=== PATIENT | female | born 1975 | race American Indian/Alaskan Native ===

== ENCOUNTER 2016-07-22 21:32 | Emergency (ER) | payer MEDICAID ==
[2016-07-22] MEDS ORDERED: ACTIDOSE-AQUA PO ONE (22:11)
[2016-07-22] MEDS ORDERED: ACTIDOSE SORBITOL PO ONE (22:13)
[2016-07-22 22:51] LABS: Basophils % (Auto) 0.8 % (0.0-1.8); Eosinophils % (Auto) 0.3 % (0.0-4.3); Hematocrit 37.7 % (30.3-42.9); Hemoglobin 12.3 gm/dl (10.1-14.3); Mean Corpuscular HGB Conc 33 % (30-34); Mean Corpuscular Hemoglobin 28 pg (28-32); Mean Corpuscular Volume 85 fl (79-97); Platelet Count 262 K/mm3 (140-440); Red Blood Count 4.42 M/mm3 (3.65-5.03); Red Cell Distribution Width 15.3 % (13.2-15.2); White Blood Count 6.8 K/mm3 (4.5-11.0)
[2016-07-22 22:59] LABS: Urine Drugs of Abuse Note Disclamer
[2016-07-22 23:09] LABS: Bilirubin,Urine NEG (Negative); Blood,Urine MOD (Negative); Ketones,Urine TR mg/dL (Negative); Leukocyte Esterase,Urine NEG (Negative); Mucus,Urine FEW /HPF; Nitrite,Urine NEG (Negative); Protein,Urine <15 mg/dL mg/dL (Negative); Urobilinogen,Urine < 2.0 mg/dL (<2.0); WBC,Urine < 1.0 /HPF (0.0-6.0)
[2016-07-22 23:12] LABS: Alanine Aminotransferase 9 units/L (7-56); Albumin/Globulin Ratio 1.3 %; Alkaline Phosphatase 67 units/L (35-129); Anion Gap 17 mmol/L; Bilirubin,Total 0.8 mg/dL (0.1-1.2); Blood Urea Nitrogen 6 mg/dL (7-17); Calcium 8.8 mg/dL (8.4-10.2); Carbon Dioxide 23 mmol/L (22-30); Chloride 103.4 mmol/L (98-107); Creatine Kinase 170 units/L (30-135); Glucose 71 mg/dL (65-100); Potassium 3.3 mmol/L (3.6-5.0); Sodium 140 mmol/L (137-145); Total Protein 7.1 g/dL (6.3-8.2)
[2016-07-22] MEDS ORDERED: K-DUR PO ONE (23:21)
[2016-07-22 23:59] LABS: Creatine Kinase MB 3.1 ng/mL (0.0-4.0)
--- NOTE | 2016-07-23 05:59 | Emergency Department Report ---
History of Present Illness - General Chief Complaint: Overdose Stated Complaint: POSS OD/SUICIDAL Time Seen by Provider: 07/22/16 22:03 Source: EMS Mode of arrival: Stretcher Limitations: No Limitations - History of Present Illness Initial Comments: 40-year-old female with a past medical history of asthma, schizophrenia, depression, PTSD, seizures, neuropathy presents to the hospital with complaints of attempted overdose. Patient apparently took approximately 15 gabapentin 300 mg, 20 trazodone 100 mg, Risperdal unknown amount and unknown doses. Patient states she acutely just his medications at approximately 8:15. Patient herself notified EMS. Patient is drowsy upon arrival but does speak intermittently and follow commands. - Related Data Allergies Allergy/AdvReac Type Severity Reaction Status Date / Time thioridazine HCl Allergy Swelling Verified 07/22/16 22:05 [From [facility]] ED Review of Systems ROS: Stated complaint: POSS OD/SUICIDAL Other details as noted in HPI ED Past Medical Hx - Past Medical History Previous Medical History?: Yes Hx Hypertension: No Hx CVA: No Hx Heart Attack/AMI: No Hx Congestive Heart Failure: No Hx Diabetes: No Hx Deep Vein Thrombosis: No Hx Pulmonary Embolism: No Hx GERD: No Hx Liver Disease: No Hx Renal Disease: No Hx of Cancer: No Hx Sickle Cell Disease: No Hx Arthritis: Yes Hx Headaches / Migraines: No Hx Seizures: Yes Hx Kidney Stones: No Hx Psychiatric Treatment: Yes (schizo, depression, ptsd) Hx Asthma: Yes Hx COPD: No Hx Tuberculosis: No Hx Dementia: No Hx HIV: No Additional medical history: neuropathy - Surgical History Past Surgical History?: Yes Hx Coronary Stent: No Hx Open Heart Surgery: No Hx Pacemaker: No Hx Internal Defibrillator: No Hx Cholecystectomy: No Hx Appendectomy: No Hx Breast Surgery: No Additional Surgical History: Left arm surgery - Social History Smoking Status: Current Every Day Smoker Substance Use Type: Alcohol, Prescribed ED Physical Exam - General Limitations: No Limitations ED Course Vital Signs 07/22/16 07/22/16 07/23/16 21:44 23:30 00:49 Temperature 97.8 F Pulse Rate 53 L 65 Respiratory 22 18 18 Rate Blood Pressure 127/67 89/39 Blood Pressure 127/67 [Left] O2 Sat by Pulse 100 98 92 Oximetry 07/23/16 07/23/16 07/23/16 00:50 00:52 00:54 Temperature Pulse Rate 62 64 65 Respiratory 18 18 19 Rate Blood Pressure 89/39 89/39 89/39 Blood Pressure [Left] O2 Sat by Pulse 93 93 93 Oximetry 07/23/16 07/23/16 07/23/16 00:56 00:58 01:00 Temperature Pulse Rate 64 65 67 Respiratory 19 19 19 Rate Blood Pressure 89/39 89/39 88/39 Blood Pressure [Left] O2 Sat by Pulse 93 92 91 Oximetry 07/23/16 07/23/16 07/23/16 01:02 01:04 01:06 Temperature Pulse Rate 67 68 68 Respiratory 18 18 18 Rate Blood Pressure 88/39 88/39 88/39 Blood Pressure [Left] O2 Sat by Pulse 92 92 92 Oximetry 07/23/16 07/23/16 07/23/16 01:08 01:10 01:12 Temperature Pulse Rate 69 69 69 Respiratory 18 19 18 Rate Blood Pressure 88/39 88/39 88/39 Blood Pressure [Left] O2 Sat by Pulse 92 92 92 Oximetry 07/23/16 07/23/16 07/23/16 01:14 01:16 01:18 Temperature Pulse Rate 68 70 72 Respiratory 18 19 22 Rate Blood Pressure 88/39 88/39 88/39 Blood Pressure [Left] O2 Sat by Pulse 92 92 93 Oximetry 07/23/16 07/23/16 07/23/16 01:20 01:22 01:24 Temperature Pulse Rate 73 75 75 Respiratory 20 24 21 Rate Blood Pressure 88/39 88/39 88/39 Blood Pressure [Left] O2 Sat by Pulse 93 92 93 Oximetry 07/23/16 07/23/16 07/23/16 01:26 01:27 01:28 Temperature Pulse Rate 75 73 77 Respiratory 22 21 21 Rate Blood Pressure 88/39 88/39 88/39 Blood Pressure [Left] O2 Sat by Pulse 92 92 92 Oximetry 07/23/16 07/23/16 07/23/16 01:30 01:32 01:34 Temperature Pulse Rate 72 76 75 Respiratory 21 20 22 Rate Blood Pressure 105/59 105/59 105/59 Blood Pressure [Left] O2 Sat by Pulse 92 93 93 Oximetry 07/23/16 07/23/16 07/23/16 01:36 01:38 01:40 Temperature Pulse Rate 82 75 77 Respiratory 23 22 22 Rate Blood Pressure 105/59 105/59 105/59 Blood Pressure [Left] O2 Sat by Pulse 92 92 92 Oximetry 07/23/16 07/23/16 07/23/16 01:42 01:44 01:46 Temperature Pulse Rate 75 80 71 Respiratory 20 23 19 Rate Blood Pressure 105/59 105/59 105/59 Blood Pressure [Left] O2 Sat by Pulse 93 89 94 Oximetry 07/23/16 07/23/16 07/23/16 01:48 01:50 01:52 Temperature Pulse Rate 72 78 76 Respiratory 19 25 H 25 H Rate Blood Pressure 105/59 105/59 105/59 Blood Pressure [Left] O2 Sat by Pulse 93 92 92 Oximetry 07/23/16 07/23/16 07/23/16 01:54 01:56 01:58 Temperature Pulse Rate 76 75 71 Respiratory 22 18 20 Rate Blood Pressure 105/59 105/59 105/59 Blood Pressure [Left] O2 Sat by Pulse 91 93 93 Oximetry 07/23/16 07/23/16 07/23/16 02:00 02:02 02:04 Temperature Pulse Rate 64 61 61 Respiratory 18 17 17 Rate Blood Pressure 88/40 88/40 88/40 Blood Pressure [Left] O2 Sat by Pulse 92 93 95 Oximetry 07/23/16 07/23/16 07/23/16 02:06 02:08 02:10 Temperature Pulse Rate 65 68 66 Respiratory 17 17 17 Rate Blood Pressure 88/40 88/40 88/40 Blood Pressure [Left] O2 Sat by Pulse 93 94 94 Oximetry 07/23/16 07/23/16 07/23/16 02:12 02:14 02:16 Temperature Pulse Rate 63 67 71 Respiratory 16 17 18 Rate Blood Pressure 88/40 88/40 88/40 Blood Pressure [Left] O2 Sat by Pulse 95 94 95 Oximetry 07/23/16 07/23/16 07/23/16 02:18 02:19 02:20 Temperature Pulse Rate 67 62 65 Respiratory 16 16 17 Rate Blood Pressure 88/40 89/43 111/66 Blood Pressure [Left] O2 Sat by Pulse 96 94 97 Oximetry 07/23/16 02:21 Temperature Pulse Rate 66 Respiratory 17 Rate Blood Pressure 105/65 Blood Pressure [Left] O2 Sat by Pulse 94 Oximetry - Consultations Consultation #1: 07/22/16 05:53 RN contacted poison control upon arrival and charcoal and supportive care recommended. Recommended observation for respiratory depression, hypotension, seizures, QTC prolongation. They state that Risperdal is the longest after medication and she requires 9 hour of observation minimum for medical clearance. ED Medical Decision Making - Lab Data Result diagrams: 07/22/16 22:00 07/22/16 22:00 Lab Results 07/22/16 07/22/16 07/22/16 Range/Units 22:00 22:00 22:00 WBC 6.8 (4.5-11.0) K/mm3 RBC 4.42 (3.65-5.03) M/mm3 Hgb 12.3 (10.1-14.3) gm/dl Hct 37.7 (30.3-42.9) % MCV 85 (79-97) fl MCH 28 (28-32) pg MCHC 33 (30-34) % RDW 15.3 H (13.2-15.2) % Plt Count 262 (140-440) K/mm3 Lymph % (Auto) 34.4 (13.4-35.0) % [place] % (Auto) 7.4 H (0.0-7.3) % Eos % (Auto) 0.3 (0.0-4.3) % Baso % (Auto) 0.8 (0.0-1.8) % Lymph # 2.3 (1.2-5.4) K/mm3 [place] # 0.5 (0.0-0.8) K/mm3 Eos # 0.0 (0.0-0.4) K/mm3 Baso # 0.1 (0.0-0.1) K/mm3 Seg Neutrophils % 57.1 (40.0-70.0) % Seg Neutrophils # 3.9 (1.8-7.7) K/mm3 Sodium 140 (137-145) mmol/L Potassium 3.3 L (3.6-5.0) mmol/L Chloride 103.4 (98-107) mmol/L Carbon Dioxide 23 (22-30) mmol/L Anion Gap 17 mmol/L BUN 6 L (7-17) mg/dL Creatinine 0.6 L (0.7-1.2) mg/dL Estimated GFR > 60 ml/min BUN/Creatinine Ratio 10.00 % Glucose 71 (65-100) mg/dL Calcium 8.8 (8.4-10.2) mg/dL Magnesium (1.7-2.3) mg/dL Total Bilirubin 0.8 (0.1-1.2) mg/dL AST 15 (5-40) units/L ALT 9 (7-56) units/L Alkaline Phosphatase 67 (35-129) units/L Total Creatine Kinase 170 H (30-135) units/L CK-MB (CK-2) 3.1 (0.0-4.0) ng/mL CK-MB (CK-2) Rel Index 1.8 (0-4) Total Protein 7.1 (6.3-8.2) g/dL Albumin 4.0 (3.9-5) g/dL Albumin/Globulin Ratio 1.3 % HCG, Quant < 2 (0-4) mIU/mL Urine Color (Yellow) Urine Turbidity (Clear) Urine pH (5.0-7.0) Ur Specific [place] (1.003-1.030) Urine Protein (Negative) mg/dL Urine Glucose (UA) (Negative) mg/dL Urine Ketones (Negative) mg/dL Urine Blood (Negative) Urine Nitrite (Negative) Urine Bilirubin (Negative) Urine Urobilinogen (<2.0) mg/dL Ur Leukocyte Esterase (Negative) Urine WBC (Auto) (0.0-6.0) /HPF Urine RBC (Auto) (0.0-6.0) /HPF U Epithel Cells (Auto) (0-13.0) /HPF Urine Mucus /HPF Salicylates (2.8-20.0) mg/dL Urine Opiates Screen Urine Methadone Screen Acetaminophen (10.0-30.0) ug/mL Ur Barbiturates Screen Ur Phencyclidine Scrn Ur Amphetamines Screen U Benzodiazepines Scrn Urine Cocaine Screen U Marijuana (THC) Screen Drugs of Abuse Note Plasma/Serum Alcohol (0-0.07) gm% 07/22/16 07/22/16 07/22/16 Range/Units 22:00 22:00 22:00 WBC (4.5-11.0) K/mm3 RBC (3.65-5.03) M/mm3 Hgb (10.1-14.3) gm/dl Hct (30.3-42.9) % MCV (79-97) fl MCH (28-32) pg MCHC (30-34) % RDW (13.2-15.2) % Plt Count (140-440) K/mm3 Lymph % (Auto) (13.4-35.0) % [place] % (Auto) (0.0-7.3) % Eos % (Auto) (0.0-4.3) % Baso % (Auto) (0.0-1.8) % Lymph # (1.2-5.4) K/mm3 [place] # (0.0-0.8) K/mm3 Eos # (0.0-0.4) K/mm3 Baso # (0.0-0.1) K/mm3 Seg Neutrophils % (40.0-70.0) % Seg Neutrophils # (1.8-7.7) K/mm3 Sodium (137-145) mmol/L Potassium (3.6-5.0) mmol/L Chloride (98-107) mmol/L Carbon Dioxide (22-30) mmol/L Anion Gap mmol/L BUN (7-17) mg/dL Creatinine (0.7-1.2) mg/dL Estimated GFR ml/min BUN/Creatinine Ratio % Glucose (65-100) mg/dL Calcium (8.4-10.2) mg/dL Magnesium (1.7-2.3) mg/dL Total Bilirubin (0.1-1.2) mg/dL AST (5-40) units/L ALT (7-56) units/L Alkaline Phosphatase (35-129) units/L Total Creatine Kinase (30-135) units/L CK-MB (CK-2) (0.0-4.0) ng/mL CK-MB (CK-2) Rel Index (0-4) Total Protein (6.3-8.2) g/dL Albumin (3.9-5) g/dL Albumin/Globulin Ratio % HCG, Quant (0-4) mIU/mL Urine Color (Yellow) Urine Turbidity (Clear) Urine pH (5.0-7.0) Ur Specific [place] (1.003-1.030) Urine Protein (Negative) mg/dL Urine Glucose (UA) (Negative) mg/dL Urine Ketones (Negative) mg/dL Urine Blood (Negative) Urine Nitrite (Negative) Urine Bilirubin (Negative) Urine Urobilinogen (<2.0) mg/dL Ur Leukocyte Esterase (Negative) Urine WBC (Auto) (0.0-6.0) /HPF Urine RBC (Auto) (0.0-6.0) /HPF U Epithel Cells (Auto) (0-13.0) /HPF Urine Mucus /HPF Salicylates < 0.3 L (2.8-20.0) mg/dL Urine Opiates Screen Urine Methadone Screen Acetaminophen < 15.0 (10.0-30.0) ug/mL Ur Barbiturates Screen Ur Phencyclidine Scrn Ur Amphetamines Screen U Benzodiazepines Scrn Urine Cocaine Screen U Marijuana (THC) Screen Drugs of Abuse Note Plasma/Serum Alcohol < 0.01 (0-0.07) gm% 07/22/16 07/22/16 07/22/16 Range/Units 22:00 22:08 22:08 WBC (4.5-11.0) K/mm3 RBC (3.65-5.03) M/mm3 Hgb (10.1-14.3) gm/dl Hct (30.3-42.9) % MCV (79-97) fl MCH (28-32) pg MCHC (30-34) % RDW (13.2-15.2) % Plt Count (140-440) K/mm3 Lymph % (Auto) (13.4-35.0) % [place] % (Auto) (0.0-7.3) % Eos % (Auto) (0.0-4.3) % Baso % (Auto) (0.0-1.8) % Lymph # (1.2-5.4) K/mm3 [place] # (0.0-0.8) K/mm3 Eos # (0.0-0.4) K/mm3 Baso # (0.0-0.1) K/mm3 Seg Neutrophils % (40.0-70.0) % Seg Neutrophils # (1.8-7.7) K/mm3 Sodium (137-145) mmol/L Potassium (3.6-5.0) mmol/L Chloride (98-107) mmol/L Carbon Dioxide (22-30) mmol/L Anion Gap mmol/L BUN (7-17) mg/dL Creatinine (0.7-1.2) mg/dL Estimated GFR ml/min BUN/Creatinine Ratio % Glucose (65-100) mg/dL Calcium (8.4-10.2) mg/dL Magnesium 2.0 (1.7-2.3) mg/dL Total Bilirubin (0.1-1.2) mg/dL AST (5-40) units/L ALT (7-56) units/L Alkaline Phosphatase (35-129) units/L Total Creatine Kinase (30-135) units/L CK-MB (CK-2) (0.0-4.0) ng/mL CK-MB (CK-2) Rel Index (0-4) Total Protein (6.3-8.2) g/dL Albumin (3.9-5) g/dL Albumin/Globulin Ratio % HCG, Quant (0-4) mIU/mL Urine Color Yellow (Yellow) Urine Turbidity Clear (Clear) Urine pH 6.0 (5.0-7.0) Ur Specific [place] 1.019 (1.003-1.030) Urine Protein <15 mg/dl (Negative) mg/dL Urine Glucose (UA) Neg (Negative) mg/dL Urine Ketones Tr (Negative) mg/dL Urine Blood Mod (Negative) Urine Nitrite Neg (Negative) Urine Bilirubin Neg (Negative) Urine Urobilinogen < 2.0 (<2.0) mg/dL Ur Leukocyte Esterase Neg (Negative) Urine WBC (Auto) < 1.0 (0.0-6.0) /HPF Urine RBC (Auto) 1.0 (0.0-6.0) /HPF U Epithel Cells (Auto) < 1.0 (0-13.0) /HPF Urine Mucus Few /HPF Salicylates (2.8-20.0) mg/dL Urine Opiates Screen Presumptive negative Urine Methadone Screen Presumptive negative Acetaminophen (10.0-30.0) ug/mL Ur Barbiturates Screen Presumptive negative Ur Phencyclidine Scrn Presumptive negative Ur Amphetamines Screen Presumptive negative U Benzodiazepines Scrn Presumptive negative Urine Cocaine Screen Presumptive positive U Marijuana (THC) Screen Presumptive negative Drugs of Abuse Note Disclamer Plasma/Serum Alcohol (0-0.07) gm% - EKG Data -: EKG Interpreted by Me (sinus rate 47, qtc 467) - Medical Decision Making Patient has been observed for a place was in the ED and is stable. Nurse's importance several vital signs automatically showing hypotension however patient was lying on the blood pressure cuff at that time. Once blood pressure cuff is appropriately adjusted repeat blood pressure shows systolic over 100 were patient has remained during ED stay. No signs of seizures, respiratory depression, or hypotensive in the ED. Patient is medically clear for psychiatric transfer and admission. Pt received PO potassium - Differential Diagnosis depression, psychosis, suicidal Critical Care Time: No Critical care attestation.: If time is entered above; I have spent that time in minutes in the direct care of this critically ill patient, excluding procedure time. ED Disposition Clinical Impression: Suicide by drug overdose, Cocaine abuse, Medical clearance for psychiatric admission, Hypokalemia Disposition: DC/TX PSY HOSP/PSY UNIT Is pt being admited?: No Does the pt Need Aspirin: No Condition: Stable Time of Disposition: 06:06
--- NOTE | 2016-07-23 16:54 | Consultation ---
History of Present Illness - Reason for Consult Consult date: 07/23/16 Reason for consult: overdose - History of Present Psychiatric Illness CHIEF COMPLAINT IN PATIENTS WORDS: "I tried to kill myself" HISTORY OF PRESENT ILLNESS REQUIRING ADMISSION TO INPATIENT LEVEL OF CARE: (Describe the onset of Illness, Intensity of Symptoms, and Circumstances Leading to Admission) This is a 40-year-old domiciled -[place] female who now presents via EMS to the ER after a suicide attempt via overdose on gabapentin, trazodone and risperidone. Patient was evaluated by the ER physician who examined the patient and ordered appropriate labs prior to medically clearing the patient. Currently the patient's vitals are stable and not suggestive of a serotonin syndrome. On my examination, the patient notes that she has been nonadherent to her medication regimen for the past 6-9 months. Her symptoms have been worsening during that time period. Recently the patient's mother in April and she became more socially withdrawn and isolated from family as well as other supportive structures. Patient currently is presenting as having suicidal thoughts, but withdrawn depressed mood, ruminative thinking, periodic auditory hallucinations and other cognitive effects of ongoing depression. PSYCHIATRIC REVIEW OF SYSTEMS: Depression: Depressed mood, suicidal thoughts Crhistiane: None noted Psychosis: +AV. no VH no grandiosity noted Anxiety/ OCD/ PTSD: Continues to worry about family and how she is perceived Suicidality: Recent suicide via overdose Other Self-Injurious Behavior: As noted above Violent/ Aggressive Behavior: None noted CURRENT MEDICATIONS: ( Psychiatric and Non-psychiatric ) Currently not taking any psychotropic medications ALLERGIES: NKDA PAST PSYCHIATRIC HISTORY: ( Prior Treatment, Precipitating Factors, Diagnosis, and Course of Treatment ) Previous inpatient hospitalization at [place] PAST PSYCHIATRIC MEDICATION TRIALS: Gabapentin Trazodone Clonazepam Risperidone MEDICAL HISTORY: (Chronic and Acute Illnesses, Current Medical Treatment, Recent Hospitalizations) Epilepsy Neuropathy Asthma HISTORY OF TRAUMA/ABUSE: Unable to obtain DRUG / ALCOHOL ABUSE HISTORY: Unable to obtain Detoxification / Withdrawal: none noted clinical examination SOCIAL HISTORY: (Educational Level, Employment, Support System, Interpersonal Relationships) Lives independently, has several family members who reside here in [place] as well as some family members that reside in [place] FAMILY HISTORY: Psychiatric/Substance Abuse Unknown MENTAL STATUS EXAM: Consciousness: alert and responding to external stimuli General Appearance: In hospital gown Eye Contact: Intermittent Attitude / Behavior: Not well related Sensorium: clear Psychomotor & Musculoskeletal Activity: Lying comfortably on hospital bed, reduce motor activity noted Mood: Sad Affect: Constricted Speech / Language: Fluent, normal rate and rhythm tone Thought Processes: Linear, logical, perseverative Thought Content: Positive SI Perception: Auditory hallucinations Orientation: person, place Concentration/Attention WORLD backwards: Unable to obtain Memory Immediate Digit Span (4-7-5-9-3-1-5): Unable to obtain Memory Recent (Objects: Lamp, Umbrella, and Telephone) Patient Response: Unable to obtain Memory Remote (Name as many presidents as you can starting with current one and going backwards) Patient Response: Unable to obtain Judgment What would you do if you smelled smoke in a crowded movie theater?: poor/impulsive Insight: poor Intelligence Vocabulary, general fund of knowledge, educational level : Below Average Capacity of ADLs: Independent STRENGTHS: Previously endorsed good psychosocial support PSYCHOSOCIAL AND ENVIRONMENTAL STRESSORS: Recent of mother ADMITTING DIAGNOSES Psychiatric: Bipolar Disorder most recent episode depressed with psychotic features Medical: Neuropathy Epilepsy Asthma X Upon Review of the patients status as stated above, there is reasonable expectation that the patient will make timely and significant practical improvement in the presenting symptoms as a result of the inpatient psychiatric hospitalization. EXPECTATION OF IMPROVEMENT: Fair Medication Education provided; including medication risks and benefits Black Box Warning Education given for SSRI/SNRI: Medication: INITIAL PLAN OF CARE AND TREATMENT GOALS: Hold psychotropic medications due to recent overdose and observe to ensure patient does not develop adverse reaction to increase serotonergic activity related to the trazodone and risperidone ingestion/overdose INITIAL DISCHARGE PLAN: Admit to inpatient psychiatric hospital for further evaluation and maintenance of safety, as well as treatment for the exacerbation of her bipolar disorder. Medications and Allergies Allergies Allergy/AdvReac Type Severity Reaction Status Date / Time thioridazine HCl Allergy Swelling Verified 07/22/16 22:05 [From [facility]] Mental Status Exam - Vital signs Last Vital Signs Temp 97.8 F 07/22/16 21:44 Pulse 66 07/23/16 02:21 Resp 17 07/23/16 12:34 BP 105/65 07/23/16 02:21 Pulse Ox 94 07/23/16 12:34 Results Result Diagrams: 07/22/16 22:00 07/22/16 22:00 Abnormal lab results 07/22/16 07/22/16 07/22/16 Range/Units 22:00 22:00 22:00 RDW 15.3 H (13.2-15.2) % [place] % (Auto) 7.4 H (0.0-7.3) % Potassium 3.3 L (3.6-5.0) mmol/L BUN 6 L (7-17) mg/dL Creatinine 0.6 L (0.7-1.2) mg/dL Total Creatine Kinase 170 H (30-135) units/L Salicylates < 0.3 L (2.8-20.0) mg/dL All other labs normal.
[2016-07-24] MEDS ORDERED: celeXA PO SCH (10:00)
[2016-07-24 13:35] VITALS: BP 99/66
[2016-07-24] MEDS ORDERED: RisperDAL PO SCH (22:00)
== END 2016-07-24 12:50 ==
LOC: EEVIPCON 21:32 → ED 21:32
DX: T42.6X2A Poisoning by other antiepileptic and sedative-hypnotic drugs, intentional self-harm, initial encounter (principal); T43.212A Poisoning by selective serotonin and norepinephrine reuptake inhibitors, intentional self-harm, initial encounter; T43.592A Poisoning by other antipsychotics and neuroleptics, intentional self-harm, initial encounter; M19.90 Unspecified osteoarthritis, unspecified site; F20.9 Schizophrenia, unspecified; F32.9 Major depressive disorder, single episode, unspecified; J45.909 Unspecified asthma, uncomplicated; F17.200 Nicotine dependence, unspecified, uncomplicated; Z88.8 Allergy status to other drugs, medicaments and biological substances; Y92.89 Other specified places as the place of occurrence of the external cause
CPT/HCPCS: 36415; 80053; 80156; 80307; 81001; 82550; 82553; 83735; 84702; 85025; 93005; 93010; 99285; G0480; 80320

== ENCOUNTER 2017-03-10 08:43 | Emergency (ER) | payer MEDICAID ==
[2017-03-10] MEDS ORDERED: ATIVAN IM PRN (17:08)
[2017-03-10] MEDS ORDERED: HALDOL IM PRN (17:08)
--- NOTE | 2017-03-10 17:09 | Emergency Department Report ---
ED Psych HPI - General Chief Complaint: Psych Stated Complaint: NEEDS PSYCH MEDS Time Seen by Provider: 03/10/17 17:00 Source: patient, RN notes reviewed Mode of arrival: Ambulatory Limitations: No Limitations - History of Present Illness Initial Comments: This is a 41-year-old female who was previously unknown to this provider. She has a past medical history of psychiatric disease. She reports to the ER with a complaint of requesting her medications be refilled, she has been off of her psychiatric medications for months. She endorses homicidality and suicidality. She is evasive about access to guns and firearms. She thinks she has a plan to harm herself but she is not certain. Her symptoms are constant, they are painless, they do not radiate anywhere, they do not have exacerbating or relieving factors. The patient denies headache, neck pain, chest pain, abdominal pain, urinary symptoms. MD Complaint: suicidal ideation, feels depressed -: Gradual Associated Psychiatric Symptoms: suicidal ideation, homicidal ideation, delusions History of same: Yes Quality: constant Improves With: none Worsens With: none Context: not taking psychiatric Associated Symptoms: denies other symptoms If Self Harm: has plan - Related Data Home Medications Medication Instructions Recorded Confirmed Last Taken Citalopram [celeXA] 20 mg PO QDAY 07/23/16 03/10/17 1 Week Ago ~07/16/16 carBAMazepine [TEGretol] 200 mg PO BID 07/23/16 03/10/17 3 Days Ago ~07/20/16 risperiDONE [RisperDAL] 1 mg PO QHS 07/23/16 03/10/17 3 Days Ago ~07/20/16 Allergies Allergy/AdvReac Type Severity Reaction Status Date / Time thioridazine HCl Allergy Swelling Verified 07/22/16 22:05 [From [facility]] ED Review of Systems ROS: Stated complaint: NEEDS PSYCH MEDS Other details as noted in HPI Constitutional: denies: fever Eyes: denies: eye discharge ENT: denies: epistaxis Respiratory: denies: cough Cardiovascular: denies: chest pain Gastrointestinal: denies: abdominal pain Genitourinary: denies: dysuria Musculoskeletal: denies: back pain Neurological: denies: weakness Psychiatric: homicidal thoughts, suicidal thoughts ED Past Medical Hx - Past Medical History Previous Medical History?: Yes Hx Hypertension: No Hx CVA: No Hx Heart Attack/AMI: No Hx Congestive Heart Failure: No Hx Diabetes: No Hx Deep Vein Thrombosis: No Hx Pulmonary Embolism: No Hx GERD: No Hx Liver Disease: No Hx Renal Disease: No Hx Sickle Cell Disease: No Hx Arthritis: Yes Hx Headaches / Migraines: No Hx Seizures: Yes Hx Kidney Stones: No Hx Psychiatric Treatment: Yes (schizo, depression, ptsd) Hx Asthma: Yes Hx COPD: No Hx Tuberculosis: No Hx Dementia: No Hx HIV: No Additional medical history: neuropathy - Surgical History Past Surgical History?: Yes Hx Coronary Stent: No Hx Open Heart Surgery: No Hx Pacemaker: No Hx Internal Defibrillator: No Hx Cholecystectomy: No Hx Appendectomy: No Hx Breast Surgery: No Additional Surgical History: Left arm surgery - Social History Smoking Status: Current Every Day Smoker Substance Use Type: Alcohol, Cocaine, Marijuana - Medications Home Medications: Home Medications Medication Instructions Recorded Confirmed Last Taken Type Citalopram [celeXA] 20 mg PO QDAY 07/23/16 03/10/17 1 Week Ago History ~07/16/16 carBAMazepine [TEGretol] 200 mg PO BID 07/23/16 03/10/17 3 Days Ago History ~07/20/16 risperiDONE [RisperDAL] 1 mg PO QHS 07/23/16 03/10/17 3 Days Ago History ~07/20/16 ED Physical Exam - General Limitations: No Limitations General appearance: alert, in no apparent distress - Head Head exam: Present: atraumatic, normocephalic - Eye Eye exam: Present: normal appearance, EOMI, other (visual acuity intact to finger counting, color perception, reading at a close distance). Absent: nystagmus - ENT ENT exam: Present: normal exam, normal orophraynx, mucous membranes moist, normal external ear exam - Neck Neck exam: Present: normal inspection, full ROM. Absent: tenderness, meningismus - Respiratory Respiratory exam: Present: normal lung sounds bilaterally. Absent: respiratory distress, chest wall tenderness - Cardiovascular Cardiovascular Exam: Present: regular rate, normal rhythm, normal heart sounds. Absent: systolic murmur, diastolic murmur, rubs, gallop - GI/Abdominal GI/Abdominal exam: Present: soft, normal bowel sounds. Absent: distended, tenderness, guarding, rebound, rigid - Extremities Exam Extremities exam: Present: normal inspection. Absent: calf tenderness - Back Exam Back exam: Present: normal inspection, full ROM. Absent: paraspinal tenderness , vertebral tenderness - Neurological Exam Neurological exam: Present: alert, oriented X3, normal gait, other (Extraocular movements intact. Tongue midline. No facial droop. Facial sensation intact to light touch in the V1, V2, V3 distribution bilaterally. 5 and 5 strength in 4 extremities.. Sensation is intact to light touch in 4 extremities.). Absent : motor sensory deficit - Psychiatric Psychiatric exam: Present: flat affect, homicidal ideation, suicidal ideation - Skin Skin exam: Present: warm, dry, intact, normal color. Absent: rash ED Course Vital Signs 03/10/17 03/10/17 03/10/17 08:59 15:05 17:10 Temperature 98.8 F 98.5 F Pulse Rate 93 H 72 Respiratory 20 16 20 Rate Blood Pressure 112/67 Blood Pressure 106/64 [Right] O2 Sat by Pulse 97 96 99 Oximetry 03/11/17 03/11/17 13:16 15:44 Temperature 97.2 F L Pulse Rate 66 Respiratory 18 18 Rate Blood Pressure Blood Pressure 99/52 [Right] O2 Sat by Pulse 98 98 Oximetry ED Medical Decision Making - Lab Data Result diagrams: 03/10/17 17:16 03/10/17 17:16 Vital Signs 03/10/17 03/10/17 03/10/17 08:59 15:05 17:10 Temperature 98.8 F 98.5 F Pulse Rate 93 H 72 Respiratory 20 16 20 Rate Blood Pressure 112/67 Blood Pressure 106/64 [Right] O2 Sat by Pulse 97 96 99 Oximetry Lab Results 03/10/17 03/10/17 03/10/17 Range/Units 17:10 17:16 17:16 WBC 7.0 (4.5-11.0) K/mm3 RBC 4.43 (3.65-5.03) M/mm3 Hgb 11.4 (10.1-14.3) gm/dl Hct 35.7 (30.3-42.9) % MCV 81 (79-97) fl MCH 26 L (28-32) pg MCHC 32 (30-34) % RDW 16.5 H (13.2-15.2) % Plt Count 274 (140-440) K/mm3 Sodium 138 (137-145) mmol/L Potassium 3.9 (3.6-5.0) mmol/L Chloride 103.5 (98-107) mmol/L Carbon Dioxide 23 (22-30) mmol/L Anion Gap 15 mmol/L BUN 8 (7-17) mg/dL Creatinine 0.7 (0.7-1.2) mg/dL Estimated GFR > 60 ml/min BUN/Creatinine Ratio 11 % Glucose 114 H (65-100) mg/dL Calcium 8.1 L (8.4-10.2) mg/dL Total Creatine Kinase 213 H (30-135) units/L HCG, Qual (Negative) Urine Color Yellow (Yellow) Urine Turbidity Clear (Clear) Urine pH 6.0 (5.0-7.0) Ur Specific Eldred 1.004 (1.003-1.030) Urine Protein <15 mg/dl (Negative) mg/dL Urine Glucose (UA) Neg (Negative) mg/dL Urine Ketones Neg (Negative) mg/dL Urine Blood Neg (Negative) Urine Nitrite Neg (Negative) Urine Bilirubin Neg (Negative) Urine Urobilinogen < 2.0 (<2.0) mg/dL Ur Leukocyte Esterase Neg (Negative) Urine WBC (Auto) < 1.0 (0.0-6.0) /HPF Urine RBC (Auto) < 1.0 (0.0-6.0) /HPF U Epithel Cells (Auto) < 1.0 (0-13.0) /HPF Urine Mucus Few /HPF Salicylates (2.8-20.0) mg/dL Acetaminophen (10.0-30.0) ug/mL Plasma/Serum Alcohol (0-0.07) gm% 03/10/17 03/10/17 03/10/17 Range/Units 17:16 17:16 17:16 WBC (4.5-11.0) K/mm3 RBC (3.65-5.03) M/mm3 Hgb (10.1-14.3) gm/dl Hct (30.3-42.9) % MCV (79-97) fl MCH (28-32) pg MCHC (30-34) % RDW (13.2-15.2) % Plt Count (140-440) K/mm3 Sodium (137-145) mmol/L Potassium (3.6-5.0) mmol/L Chloride (98-107) mmol/L Carbon Dioxide (22-30) mmol/L Anion Gap mmol/L BUN (7-17) mg/dL Creatinine (0.7-1.2) mg/dL Estimated GFR ml/min BUN/Creatinine Ratio % Glucose (65-100) mg/dL Calcium (8.4-10.2) mg/dL Total Creatine Kinase (30-135) units/L HCG, Qual (Negative) Urine Color (Yellow) Urine Turbidity (Clear) Urine pH (5.0-7.0) Ur Specific Eldred (1.003-1.030) Urine Protein (Negative) mg/dL Urine Glucose (UA) (Negative) mg/dL Urine Ketones (Negative) mg/dL Urine Blood (Negative) Urine Nitrite (Negative) Urine Bilirubin (Negative) Urine Urobilinogen (<2.0) mg/dL Ur Leukocyte Esterase (Negative) Urine WBC (Auto) (0.0-6.0) /HPF Urine RBC (Auto) (0.0-6.0) /HPF U Epithel Cells (Auto) (0-13.0) /HPF Urine Mucus /HPF Salicylates < 0.3 L (2.8-20.0) mg/dL Acetaminophen < 15.0 (10.0-30.0) ug/mL Plasma/Serum Alcohol < 0.01 (0-0.07) gm% 11/16/17 Range/Units 17:16 WBC (4.5-11.0) K/mm3 RBC (3.65-5.03) M/mm3 Hgb (10.1-14.3) gm/dl Hct (30.3-42.9) % MCV (79-97) fl MCH (28-32) pg MCHC (30-34) % RDW (13.2-15.2) % Plt Count (140-440) K/mm3 Sodium (137-145) mmol/L Potassium (3.6-5.0) mmol/L Chloride (98-107) mmol/L Carbon Dioxide (22-30) mmol/L Anion Gap mmol/L BUN (7-17) mg/dL Creatinine (0.7-1.2) mg/dL Estimated GFR ml/min BUN/Creatinine Ratio % Glucose (65-100) mg/dL Calcium (8.4-10.2) mg/dL Total Creatine Kinase (30-135) units/L HCG, Qual Negative (Negative) Urine Color (Yellow) Urine Turbidity (Clear) Urine pH (5.0-7.0) Ur Specific Eldred (1.003-1.030) Urine Protein (Negative) mg/dL Urine Glucose (UA) (Negative) mg/dL Urine Ketones (Negative) mg/dL Urine Blood (Negative) Urine Nitrite (Negative) Urine Bilirubin (Negative) Urine Urobilinogen (<2.0) mg/dL Ur Leukocyte Esterase (Negative) Urine WBC (Auto) (0.0-6.0) /HPF Urine RBC (Auto) (0.0-6.0) /HPF U Epithel Cells (Auto) (0-13.0) /HPF Urine Mucus /HPF Salicylates (2.8-20.0) mg/dL Acetaminophen (10.0-30.0) ug/mL Plasma/Serum Alcohol (0-0.07) gm% - Medical Decision Making Differential diagnosis, including but not limited to: Homicidality, suicidality , decompensated psychiatric disease, medical clearance for psychiatric placement Assessment and plan: 41-year-old female, no medical complaints, active psychiatric issues, clinically sober, walks with a steady gait, bizarre affect, GCS of 15, NIH score of 0. Her physical examination is unremarkable. Her laboratory studies are unremarkable. She is placed on a 1013. Crisis has been involved, mental health has been involved, at this point time, it is not appear to be any immediate medical contraindication to psychiatric admission/ evaluation and consultation. Critical care attestation.: If time is entered above; I have spent that time in minutes in the direct care of this critically ill patient, excluding procedure time. ED Disposition Clinical Impression: Medical clearance for psychiatric admission Disposition: [id number] PSY HOSP/PSY UNIT Is pt being admited?: No Does the pt Need Aspirin: No Condition: Good Referrals: PRIMARY CARE, [Primary Care Provider] - 3-5 Days
[2017-03-10 17:40] LABS: Hematocrit 35.7 % (30.3-42.9); Hemoglobin 11.4 gm/dl (10.1-14.3); Mean Corpuscular HGB Conc 32 % (30-34); Mean Corpuscular Volume 81 fl (79-97); Platelet Count 274 K/mm3 (140-440); Red Blood Count 4.43 M/mm3 (3.65-5.03); Red Cell Distribution Width 16.5 % (13.2-15.2)
[2017-03-10 17:42] LABS: Mean Corpuscular Hemoglobin 26 pg (28-32)
[2017-03-10 17:46] LABS: Anion Gap 15 mmol/L; BUN/Creatinine Ratio 11; Blood Urea Nitrogen 8 mg/dL (7-17); Calcium 8.1 mg/dL (8.4-10.2); Carbon Dioxide 23 mmol/L (22-30); Chloride 103.5 mmol/L (98-107); Creatine Kinase 213 units/L (30-135); Glucose 114 mg/dL (65-100); Potassium 3.9 mmol/L (3.6-5.0); Sodium 138 mmol/L (137-145)
[2017-03-10 17:58] LABS: Bilirubin,Urine NEG (Negative); Blood,Urine NEG (Negative); Ketones,Urine NEG (Negative); Leukocyte Esterase,Urine NEG (Negative); Mucus,Urine FEW /HPF; Nitrite,Urine NEG (Negative); Protein,Urine <15 mg/dL mg/dL (Negative); RBC,Urine < 1.0 /HPF (0.0-6.0); Urobilinogen,Urine < 2.0 mg/dL (<2.0); WBC,Urine < 1.0 /HPF (0.0-6.0)
[2017-03-10 22:01] LABS: Urine Drugs of Abuse Note Disclamer
--- NOTE | 2017-03-11 11:58 | Consultation ---
History of Present Illness - Reason for Consult Consult date: 03/11/17 Reason for consult: Mental Health Evaluation Requesting physician: STEVEN TORRES - Chief Complaint Chief complaint: "Someone is out to get me" - History of Present Psychiatric Illness 41 y.o. 41 AA female presenting to the [facility] for suicidality and AH's. Today patient is cooperative, but paranoid during the assessment. She stated being out of her medications (Risperdal, Trazodone, and Gabapentin) for months with a dx of Schizophrenia. She stated that she was hospitalized in a mental health facility several months ago. She stated that she was hospitalized for hearing voices that she is experiencing now. She stated that the voices are telling her all types of things that has made her suicidal. She stated that she cannot sleep nor concentrate. During the interview, the patient was looking around and did not want to leave her room to talk, possibly responding to some type of stimuli. She stated that she feel like someone is out to get her. She stated "snorting" cocaine yesterday to "take the edge off." She admit to a previous suicide attempt by overdosing because the voices was "overwhelming." She endorses SI's with a plan to overdose. She denies HI's and AH's. She stated that her sleep is erratic because of the voices. She denies excessive alcohol consumption (etoh). She stated that she take Gabapentin three times a day for seizures. Medications and Allergies Allergies Allergy/AdvReac Type Severity Reaction Status Date / Time thioridazine HCl Allergy Swelling Verified 07/22/16 22:05 [From [facility]] Home Medications Medication Instructions Recorded Confirmed Last Taken Type Citalopram [celeXA] 20 mg PO QDAY 07/23/16 03/10/17 1 Week Ago History ~07/16/16 carBAMazepine [TEGretol] 200 mg PO BID 07/23/16 03/10/17 3 Days Ago History ~07/20/16 risperiDONE [RisperDAL] 1 mg PO QHS 07/23/16 03/10/17 3 Days Ago History ~07/20/16 Active Meds: Active Medications Haloperidol Lactate (Haldol) 5 mg IM Q6HR PRN PRN Reason: Agitation Lorazepam (Ativan) 2 mg IM Q4HR PRN PRN Reason: Agitation Past psychiatric history - Past Medical History Past Medical History: seizures, other (Asthma) Past Surgical History: No surgical history - past Psychiatric treatment and history Psych: Schizophrenia psychiatric treatment history: Multiple inpatient psy settings. Denies a fam psy hx. - Social History Social history: other (Homeless) Mental Status Exam - Vital signs Last Vital Signs Temp 98.5 F 03/10/17 15:05 Pulse 72 03/10/17 15:05 Resp 20 03/10/17 17:10 BP 106/64 03/10/17 15:05 Pulse Ox 99 03/10/17 17:10 - Exam Narrative exam: MSE: Appearance: calm Behavior: regular eye contact Speech: regular rate and tone Mood: "down" Affect: dysphoric Thought Process: circumstantial Thought Content: denies HI's and VH's, paranoid Motor Activity: ambulatory Cognition: A/O x3 Insight: variable Judgment: variable Results Result Diagrams: 03/10/17 17:16 03/10/17 17:16 Abnormal lab results 03/10/17 03/10/17 03/10/17 Range/Units 17:16 17:16 17:16 MCH 26 L (28-32) pg RDW 16.5 H (13.2-15.2) % Glucose 114 H (65-100) mg/dL Calcium 8.1 L (8.4-10.2) mg/dL Total Creatine Kinase 213 H (30-135) units/L Salicylates < 0.3 L (2.8-20.0) mg/dL All other labs normal. Assessment and Plan Assessment and plan: Impression: Schizophrenia Paranoid type. Today patient is cooperative, but paranoid during the assessment. Patient endorses SI's with a plan. DDx: Schizoaffective DO, R/O MDD with psychosis, R/O Substance Induced Psychosis Recommendation/Plan: Continue 1013 with placement to [facility] today. Start Risperdal 1 mg PO HS for psychosis/mood, Trazodone 50 mg PO HS for sleep consolidation, and Gabapentin 300 mg PO TID for seizures. Discussed possible metabolic side effects of Risperdal with patient. Also discussed suicidality/ medication induced delfina with patient reference Trazodone.
[2017-03-11] MEDS ORDERED: NEURONTIN PO SCH (14:00)
[2017-03-11 15:45] VITALS: BP 99/52
[2017-03-11] MEDS ORDERED: DESYREL PO SCH (22:00)
[2017-03-11] MEDS ORDERED: RisperDAL PO SCH (22:00)
== END 2017-03-11 18:07 ==
LOC: ED 08:43 → EEVIPCON 08:43 → ED 03-11 18:07
DX: F22 Delusional disorders (principal); R56.9 Unspecified convulsions; M19.90 Unspecified osteoarthritis, unspecified site; J45.909 Unspecified asthma, uncomplicated; F29 Unspecified psychosis not due to a substance or known physiological condition; F20.9 Schizophrenia, unspecified; F17.200 Nicotine dependence, unspecified, uncomplicated; F12.10 Cannabis abuse, uncomplicated; F14.10 Cocaine abuse, uncomplicated
CPT/HCPCS: 36415; 80048; 80307; 81001; 82550; 84703; 85027; 99285; G0480; 80320

== ENCOUNTER 2018-01-07 20:06 | Emergency (ER) | payer MEDICAID ==
[2018-01-07 21:32] LABS: Basophils % (Auto) 0.6 % (0.0-1.8); Eosinophils # (Auto) 0.1 K/mm3 (0.0-0.4); Eosinophils % (Auto) 1.5 % (0.0-4.3); Hematocrit 33.3 % (30.3-42.9); Hemoglobin 11.1 gm/dl (10.1-14.3); Lymphocytes # (Auto) 2.9 K/mm3 (1.2-5.4); Lymphocytes % (Auto) 39.6 % (13.4-35.0); Mean Corpuscular HGB Conc 33 % (30-34); Mean Corpuscular Hemoglobin 27 pg (28-32); Mean Corpuscular Volume 81 fl (79-97); Monocytes # (Auto) 0.4 K/mm3 (0.0-0.8); Monocytes % (Auto) 5.9 % (0.0-7.3); Platelet Count 311 K/mm3 (140-440); Red Cell Distribution Width 16.4 % (13.2-15.2)
[2018-01-07 21:43] LABS: BUN/Creatinine Ratio 7; Blood Urea Nitrogen 6 mg/dL (7-17); Calcium 8.8 mg/dL (8.4-10.2); Hemolysis Index 3
[2018-01-07 21:51] LABS: Bilirubin,Urine NEG (Negative); Blood,Urine MOD (Negative); Color,Urine Straw (Yellow); Mucus,Urine FEW /HPF; Protein,Urine <15 mg/dL mg/dL (Negative); Urobilinogen,Urine < 2.0 mg/dL (<2.0); WBC,Urine < 1.0 /HPF (0.0-6.0)
[2018-01-07 21:57] LABS: Amphetamine Screen,Urine PRESUMPTIVE NEGATIVE; Benzodiazepines Screen,Urine PRESUMPTIVE NEGATIVE; Cannabinoid Screen,Urine PRESUMPTIVE NEGATIVE; Methadone Screen,Urine PRESUMPTIVE NEGATIVE; Opiate Screen,Urine PRESUMPTIVE NEGATIVE
[2018-01-07 22:10] LABS: Cocaine Screen,Urine PRESUMPTIVE POSITIVE
[2018-01-07] MEDS ORDERED: NEURONTIN PO ONE (22:38)
--- NOTE | 2018-01-07 22:45 | Emergency Department Report ---
ED Psych HPI - General Chief Complaint: Psych Stated Complaint: MH Time Seen by Provider: 01/07/18 21:53 Source: patient Mode of arrival: Ambulatory Limitations: No Limitations - History of Present Illness Initial Comments: 42-year-old female past medical history schizophrenia, PTSD, depression, asthma , arthritis, seizures, and neuropathy presents to the hospital with complaints of side ideation and psychosis. She complains of hearing voices, being agitated with others, and having racing thoughts. Suicidal with plan to overdose. History of suicide attempt as via cutting her forearms, hanging herself, and previous overdose. She has been noncompliant with her psychiatric meds for a few months and does not have a psychiatrist currently. She is complaining of chronic bilateral moderate leg pain secondary to neuropathy and requests to be restarted on her gabapentin. - Related Data Home Medications Medication Instructions Recorded Confirmed Last Taken Citalopram [celeXA] 20 mg PO QDAY 07/23/16 01/07/18 1 Week Ago ~07/16/16 carBAMazepine [TEGretol] 200 mg PO BID 07/23/16 01/07/18 3 Days Ago ~07/20/16 risperiDONE [RisperDAL] 4 mg PO QHS 07/23/16 01/07/18 3 Days Ago ~07/20/16 ALBUTEROL Inhaler(NF) [VENTOLIN 2 puff IH Q4H PRN 01/07/18 01/07/18 Unknown Inhaler(NF)] Gabapentin [Neurontin] 300 mg PO TID 01/07/18 01/07/18 Unknown Allergies Allergy/AdvReac Type Severity Reaction Status Date / Time thioridazine HCl Allergy Swelling Verified 07/22/16 22:05 [From [facility]] ED Review of Systems ROS: Stated complaint: MH Other details as noted in HPI Comment: All other systems reviewed and negative ED Past Medical Hx - Past Medical History Previous Medical History?: Yes Hx Hypertension: No Hx CVA: No Hx Heart Attack/AMI: No Hx Congestive Heart Failure: No Hx Diabetes: No Hx Deep Vein Thrombosis: No Hx Pulmonary Embolism: No Hx GERD: No Hx Liver Disease: No Hx Renal Disease: No Hx Sickle Cell Disease: No Hx Arthritis: Yes Hx Headaches / Migraines: No Hx Seizures: Yes Hx Kidney Stones: No Hx Psychiatric Treatment: Yes (schizophrenia, depression, ptsd) Hx Asthma: Yes Hx COPD: No Hx Tuberculosis: No Hx Dementia: No Hx HIV: No Additional medical history: neuropathy - Surgical History Past Surgical History?: Yes Hx Coronary Stent: No Hx Open Heart Surgery: No Hx Pacemaker: No Hx Internal Defibrillator: No Hx Cholecystectomy: No Hx Appendectomy: No Hx Breast Surgery: No Additional Surgical History: Left arm surgery - Social History Smoking Status: Current Some Day Smoker - Medications Home Medications: Home Medications Medication Instructions Recorded Confirmed Last Taken Type Citalopram [celeXA] 20 mg PO QDAY 07/23/16 01/07/18 1 Week Ago History ~07/16/16 carBAMazepine [TEGretol] 200 mg PO BID 07/23/16 01/07/18 3 Days Ago History ~07/20/16 risperiDONE [RisperDAL] 4 mg PO QHS 07/23/16 01/07/18 3 Days Ago History ~07/20/16 ALBUTEROL Inhaler(NF) [VENTOLIN 2 puff IH Q4H PRN 01/07/18 01/07/18 Unknown History Inhaler(NF)] Gabapentin [Neurontin] 300 mg PO TID 01/07/18 01/07/18 Unknown History ED Physical Exam - General Limitations: Other - Other Other exam information: General: No limitations, patient is alert in no acute distress Head exam: Atraumatic, normocephalic Eyes exam: Normal appearance ENT: Moist mucous membrane, normal oropharynx Neck exam: Normal inspection, full range of motion, no meningismus nontender Respiratory exam: Clear to auscultation bilateral, no wheezes, rales, crackles Cardiovascular: Normal rate and rhythm, normal heart sounds Abdomen: Soft, nondistended, and nontender, with normal bowel sounds, no rebound, or guarding Extremity: Full range of motion, no more specific, no deformity Back: Normal Inspection, full range of motion, no tenderness Neurologic: Alert, oriented x3, cranial nerves intact, no motor or sensory deficit Psychiatric: Flat affect mood Skin: Warm, dry, intact ED Course Vital Signs 01/07/18 01/07/18 21:01 21:47 Temperature 98.0 F 97.8 F Pulse Rate 73 72 Respiratory 16 18 Rate Blood Pressure 123/83 Blood Pressure 115/72 [Left] O2 Sat by Pulse 97 98 Oximetry ED Medical Decision Making - Lab Data Result diagrams: 01/07/18 21:17 01/07/18 21:17 Lab Results 01/07/18 01/07/18 01/07/18 Range/Units 21:17 21:17 21:17 WBC (4.5-11.0) K/mm3 RBC (3.65-5.03) M/mm3 Hgb (10.1-14.3) gm/dl Hct (30.3-42.9) % MCV (79-97) fl MCH (28-32) pg MCHC (30-34) % RDW (13.2-15.2) % Plt Count (140-440) K/mm3 Lymph % (Auto) (13.4-35.0) % [place] % (Auto) (0.0-7.3) % Eos % (Auto) (0.0-4.3) % Baso % (Auto) (0.0-1.8) % Lymph # (1.2-5.4) K/mm3 [place] # (0.0-0.8) K/mm3 Eos # (0.0-0.4) K/mm3 Baso # (0.0-0.1) K/mm3 Seg Neutrophils % (40.0-70.0) % Seg Neutrophils # (1.8-7.7) K/mm3 Sodium 141 (137-145) mmol/L Potassium 3.7 (3.6-5.0) mmol/L Chloride 105.5 (98-107) mmol/L Carbon Dioxide 24 (22-30) mmol/L Anion Gap 15 mmol/L BUN 6 L (7-17) mg/dL Creatinine 0.9 (0.7-1.2) mg/dL Estimated GFR > 60 ml/min BUN/Creatinine Ratio 7 % Glucose 96 (65-100) mg/dL Calcium 8.8 (8.4-10.2) mg/dL HCG, Qual (Negative) Urine Color (Yellow) Urine Turbidity (Clear) Urine pH (5.0-7.0) Ur Specific [place] (1.003-1.030) Urine Protein (Negative) mg/dL Urine Glucose (UA) (Negative) mg/dL Urine Ketones (Negative) mg/dL Urine Blood (Negative) Urine Nitrite (Negative) Urine Bilirubin (Negative) Urine Urobilinogen (<2.0) mg/dL Ur Leukocyte Esterase (Negative) Urine WBC (Auto) (0.0-6.0) /HPF Urine RBC (Auto) (0.0-6.0) /HPF U Epithel Cells (Auto) (0-13.0) /HPF Urine Mucus /HPF Salicylates < 0.3 L (2.8-20.0) mg/dL Urine Opiates Screen Urine Methadone Screen Acetaminophen < 5.0 L (10.0-30.0) ug/mL Ur Barbiturates Screen Ur Phencyclidine Scrn Ur Amphetamines Screen U Benzodiazepines Scrn Urine Cocaine Screen U Marijuana (THC) Screen Drugs of Abuse Note Plasma/Serum Alcohol (0-0.07) % 01/07/18 01/07/18 01/07/18 Range/Units 21:17 21:17 21:17 WBC 7.2 (4.5-11.0) K/mm3 RBC 4.10 (3.65-5.03) M/mm3 Hgb 11.1 (10.1-14.3) gm/dl Hct 33.3 (30.3-42.9) % MCV 81 (79-97) fl MCH 27 L (28-32) pg MCHC 33 (30-34) % RDW 16.4 H (13.2-15.2) % Plt Count 311 (140-440) K/mm3 Lymph % (Auto) 39.6 H (13.4-35.0) % [place] % (Auto) 5.9 (0.0-7.3) % Eos % (Auto) 1.5 (0.0-4.3) % Baso % (Auto) 0.6 (0.0-1.8) % Lymph # 2.9 (1.2-5.4) K/mm3 [place] # 0.4 (0.0-0.8) K/mm3 Eos # 0.1 (0.0-0.4) K/mm3 Baso # 0.0 (0.0-0.1) K/mm3 Seg Neutrophils % 52.4 (40.0-70.0) % Seg Neutrophils # 3.8 (1.8-7.7) K/mm3 Sodium (137-145) mmol/L Potassium (3.6-5.0) mmol/L Chloride (98-107) mmol/L Carbon Dioxide (22-30) mmol/L Anion Gap mmol/L BUN (7-17) mg/dL Creatinine (0.7-1.2) mg/dL Estimated GFR ml/min BUN/Creatinine Ratio % Glucose (65-100) mg/dL Calcium (8.4-10.2) mg/dL HCG, Qual Negative (Negative) Urine Color (Yellow) Urine Turbidity (Clear) Urine pH (5.0-7.0) Ur Specific [place] (1.003-1.030) Urine Protein (Negative) mg/dL Urine Glucose (UA) (Negative) mg/dL Urine Ketones (Negative) mg/dL Urine Blood (Negative) Urine Nitrite (Negative) Urine Bilirubin (Negative) Urine Urobilinogen (<2.0) mg/dL Ur Leukocyte Esterase (Negative) Urine WBC (Auto) (0.0-6.0) /HPF Urine RBC (Auto) (0.0-6.0) /HPF U Epithel Cells (Auto) (0-13.0) /HPF Urine Mucus /HPF Salicylates (2.8-20.0) mg/dL Urine Opiates Screen Urine Methadone Screen Acetaminophen (10.0-30.0) ug/mL Ur Barbiturates Screen Ur Phencyclidine Scrn Ur Amphetamines Screen U Benzodiazepines Scrn Urine Cocaine Screen U Marijuana (THC) Screen Drugs of Abuse Note Plasma/Serum Alcohol < 0.01 (0-0.07) % 01/07/18 01/07/18 Range/Units 21:30 21:30 WBC (4.5-11.0) K/mm3 RBC (3.65-5.03) M/mm3 Hgb (10.1-14.3) gm/dl Hct (30.3-42.9) % MCV (79-97) fl MCH (28-32) pg MCHC (30-34) % RDW (13.2-15.2) % Plt Count (140-440) K/mm3 Lymph % (Auto) (13.4-35.0) % [place] % (Auto) (0.0-7.3) % Eos % (Auto) (0.0-4.3) % Baso % (Auto) (0.0-1.8) % Lymph # (1.2-5.4) K/mm3 [place] # (0.0-0.8) K/mm3 Eos # (0.0-0.4) K/mm3 Baso # (0.0-0.1) K/mm3 Seg Neutrophils % (40.0-70.0) % Seg Neutrophils # (1.8-7.7) K/mm3 Sodium (137-145) mmol/L Potassium (3.6-5.0) mmol/L Chloride (98-107) mmol/L Carbon Dioxide (22-30) mmol/L Anion Gap mmol/L BUN (7-17) mg/dL Creatinine (0.7-1.2) mg/dL Estimated GFR ml/min BUN/Creatinine Ratio % Glucose (65-100) mg/dL Calcium (8.4-10.2) mg/dL HCG, Qual (Negative) Urine Color Straw (Yellow) Urine Turbidity Clear (Clear) Urine pH 6.0 (5.0-7.0) Ur Specific [place] 1.005 (1.003-1.030) Urine Protein <15 mg/dl (Negative) mg/dL Urine Glucose (UA) Neg (Negative) mg/dL Urine Ketones Neg (Negative) mg/dL Urine Blood Mod (Negative) Urine Nitrite Neg (Negative) Urine Bilirubin Neg (Negative) Urine Urobilinogen < 2.0 (<2.0) mg/dL Ur Leukocyte Esterase Neg (Negative) Urine WBC (Auto) < 1.0 (0.0-6.0) /HPF Urine RBC (Auto) 2.0 (0.0-6.0) /HPF U Epithel Cells (Auto) < 1.0 (0-13.0) /HPF Urine Mucus Few /HPF Salicylates (2.8-20.0) mg/dL Urine Opiates Screen Presumptive negative Urine Methadone Screen Presumptive negative Acetaminophen (10.0-30.0) ug/mL Ur Barbiturates Screen Presumptive negative Ur Phencyclidine Scrn Presumptive negative Ur Amphetamines Screen Presumptive negative U Benzodiazepines Scrn Presumptive negative Urine Cocaine Screen Presumptive positive U Marijuana (THC) Screen Presumptive negative Drugs of Abuse Note Disclamer Plasma/Serum Alcohol (0-0.07) % - Medical Decision Making Suicidal psychiatric history Exacerbation likely secondary to medication noncompliance UDS positive for cocaine Patient medically clear for psychiatric admission Mental health evaluation ordered 1013 and transfer forms signed. Neuropathy Chronic Neurontin restarted - Differential Diagnosis neuropathy, psychosis, suicidal, medication noncompliance Critical Care Time: No Critical care attestation.: If time is entered above; I have spent that time in minutes in the direct care of this critically ill patient, excluding procedure time. ED Disposition Clinical Impression: Schizophrenia, Psychosis, Suicidal ideation, Nonadherence to medication, Cocaine abuse, Medical clearance for psychiatric admission Disposition: [id number]/[id number] PSY HOSP/PSY UNIT Is pt being admited?: No Condition: Stable Referrals: PRIMARY CARE, [Primary Care Provider] - 3-5 Days Time of Disposition: 22:45 (awaiting acceptance)
[2018-01-08] MEDS ORDERED: NEURONTIN PO SCH (08:00)
[2018-01-08 09:26] VITALS: BP 134/77
--- NOTE | 2018-01-08 14:54 | Consultation ---
History of Present Illness - Reason for Consult Consult date: 01/08/18 Reason for consult: Initial Psychiatric Evaluation Medications and Allergies Allergies Allergy/AdvReac Type Severity Reaction Status Date / Time thioridazine HCl Allergy Swelling Verified 07/22/16 22:05 [From [facility]] Home Medications Medication Instructions Recorded Confirmed Last Taken Type Citalopram [celeXA] 20 mg PO QDAY 07/23/16 01/07/18 1 Week Ago History ~07/16/16 carBAMazepine [TEGretol] 200 mg PO BID 07/23/16 01/07/18 3 Days Ago History ~07/20/16 risperiDONE [RisperDAL] 4 mg PO QHS 07/23/16 01/07/18 3 Days Ago History ~07/20/16 ALBUTEROL Inhaler(NF) [VENTOLIN 2 puff IH Q4H PRN 01/07/18 01/07/18 Unknown History Inhaler(NF)] Gabapentin [Neurontin] 300 mg PO TID 01/07/18 01/07/18 Unknown History Mental Status Exam - Vital signs Last Vital Signs Temp 98.8 F 01/08/18 09:25 Pulse 74 01/08/18 09:25 Resp 16 01/08/18 09:25 BP 134/77 01/08/18 09:25 Pulse Ox 97 01/08/18 09:25 Results Result Diagrams: 01/07/18 21:17 01/07/18 21:17 Abnormal lab results 01/07/18 01/07/18 01/07/18 Range/Units 21:17 21:17 21:17 MCH (28-32) pg RDW (13.2-15.2) % Lymph % (Auto) (13.4-35.0) % BUN 6 L (7-17) mg/dL Salicylates < 0.3 L (2.8-20.0) mg/dL Acetaminophen < 5.0 L (10.0-30.0) ug/mL 01/07/18 Range/Units 21:17 MCH 27 L (28-32) pg RDW 16.4 H (13.2-15.2) % Lymph % (Auto) 39.6 H (13.4-35.0) % BUN (7-17) mg/dL Salicylates (2.8-20.0) mg/dL Acetaminophen (10.0-30.0) ug/mL All other labs normal.
== END 2018-01-08 11:16 ==
LOC: ED 20:06
DX: F20.9 Schizophrenia, unspecified (principal); F29 Unspecified psychosis not due to a substance or known physiological condition; R45.851 Suicidal ideations; Z91.14 Patient's other noncompliance with medication regimen; F14.10 Cocaine abuse, uncomplicated; M19.90 Unspecified osteoarthritis, unspecified site; F32.9 Major depressive disorder, single episode, unspecified; J45.909 Unspecified asthma, uncomplicated; F17.200 Nicotine dependence, unspecified, uncomplicated
CPT/HCPCS: 36415; 80048; 80307; 81001; 84703; 85025; 99285; G0480; 80320

== ENCOUNTER 2021-10-19 09:46 | Emergency (ER) | payer MEDICAID ==
[2021-10-19 10:13] VITALS: BP 122/78
--- NOTE | 2021-10-19 10:14 | Emergency Department Report ---
Blank Doc - Documentation Documentation: 46-year-old female that presents with left sided weakness and tingling sensation x 1week. History of stroke. 1- This is a initial triage assessment/medical screening only. Full assessment and work-up will be completed once the patient is in proper hospital gown, ED bed and in a private room setting. This initial assessment/diagnostic orders/clinical plan/ treatment(s) is/are subject to change based on pt's health status, clinical progression and re-assessment by fellow clinical providers in the ED. Further treatment and workup at subsequent clinical providers discretion. Patient/guardians urged not to elope from ED as their condition may be serious if not clinically assessed and managed. 2-stroke protocols The patient was evaluated in the emergency department for symptoms described in the history of present illness. He/she was evaluated in the context of the global COVID-19 pandemic, which necessitated consideration that the patient might be at risk for infection with the virus that causes COVID-19. Institutional protocols and algorithms that pertain to the evaluation of patients at risk for COVID-19 are in a state of rapid change based on information released by regulatory bodies including the CDC and federal and state organizations. These policies and algorithms were followed during the patient's care in the emergency department. Please note that these policies, procedures and recommendations changed on a rapid basis.
[2021-10-19 10:54] LABS: Basophils # (Auto) 0.1 K/mm3 (0.0-0.1); Basophils % (Auto) 1.3 % (0.0-1.8); Eosinophils # (Auto) 0.1 K/mm3 (0.0-0.4); Eosinophils % (Auto) 1.8 % (0.0-4.3); Hemoglobin 12.9 gm/dl (10.1-14.3); Lymphocytes # (Auto) 1.7 K/mm3 (1.2-5.4); Lymphocytes % (Auto) 29.9 % (13.4-35.0); Mean Corpuscular HGB Conc 32 % (30-34); Mean Corpuscular Volume 86 fl (79-97); Monocytes # (Auto) 0.2 K/mm3 (0.0-0.8); Platelet Count 287 K/mm3 (140-440); Red Blood Count 4.64 M/mm3 (3.65-5.03); Red Cell Distribution Width 14.2 % (13.2-15.2)
[2021-10-19 11:04] LABS: INR 0.86 (0.87-1.13)
[2021-10-19 11:05] LABS: Partial Thromboplastin Time 30.3 Sec. (24.2-36.6); Thrombin Time 17.1 Sec. (15.1-19.6)
[2021-10-19 11:13] LABS: Creatine Kinase MB 2.7 ng/mL (0.0-4.0)
[2021-10-19 11:16] LABS: Alanine Aminotransferase 10 units/L (7-56); Albumin 4.3 g/dL (3.9-5); Blood Urea Nitrogen 9 mg/dL (7-17); Calcium 9.2 mg/dL (8.4-10.2); Hemolysis Index 2
[2021-10-19 11:25] LABS: BUN/Creatinine Ratio 13
--- NOTE | 2021-10-19 11:43 | Cat Scan Report ---
CT BRAIN: 10/19/2021 INDICATION / CLINICAL INFORMATION: Right-sided weakness and numbness. Unsteady gait. Neck pain. COMPARISON: MRI brain and cervical spine 08/21/2021. CT brain 08/20/2021 are normal in size and shape. There is no evidence of ischemic injury, hemorrhage, or mass. There are no abnormal extra-axial fluid collections. FINDINGS: BRAIN/INTRACRANIAL STRUCTURES: Unenhanced CT images of the brain demonstrate no evidence of acute abn ormality. Ventricles and sulci are normal in size and shape. Incidental note is made of a cavum vellum interpos itum, a normal variant. There is no evidence of ischemic injury, hemorrhage, or mass. There are no abnormal extra-axial fluid collections. EXTRACRANIAL STRUCTURES: Unremarkable. IMPRESSION: Negative unenhanced CT of the brain. No change when compared to prior exams from 08/12/2021 and 08/21/2021. All CT scans at this location are performed using dose reduction to ALARA by means of automated expos ure control. Signer Name: Cliff Nixon MD Signed: 10/19/2021 11:38 AM Workstation Name: [id number]
== END 2021-10-20 13:09 | disposition left against medical advice (07) ==
LOC: ED 09:46
DX: R20.0 Anesthesia of skin (principal); Z53.21 Procedure and treatment not carried out due to patient leaving prior to being seen by health care provider
CPT/HCPCS: 36415; 70450; 80053; 80320; 82550; 82553; 84484; 85025; 85610; 85670; 85730; G0480